=== PATIENT | male | born 1965 | race Hispanic/Latino ===

== ENCOUNTER 2020-06-05 05:53 | Day surgery (SDC) | payer OTHER ==
[~2020-06-05] VITALS: Ht 157.5 cm; Wt 96.2 kg
[2020-06-05] MEDS ORDERED: SODIUM CHLORIDE 0.9% 1000ML 1,000 ML IV ONE (06:24)
[2020-06-05 06:55] VITALS: BP 120/63
[2020-06-05] MEDS ORDERED: PROPOFOL 10 MG/ML 20ML VIAL IV ONE ×4 (08:26→09:13)
[2020-06-05] MEDS ORDERED: LIDOCAINE HCL 1% 20 ML VIAL ONE (08:26)
[2020-06-05 09:35] VITALS: BP 114/50
[2020-06-05 09:53] VITALS: BP 122/72
== END 2020-06-05 09:55 | disposition home or self-care (01) ==
LOC: ENDO 05:53 → DAH 05:53 → ENDO 09:55
PROVIDERS: ATTEND Internal Medicine Gastroenterology
DX: D49.0 Neoplasm of unspecified behavior of digestive system (principal); Z20.828 Contact with and (suspected) exposure to other viral communicable diseases; I10 Essential (primary) hypertension; E78.5 Hyperlipidemia, unspecified; K21.9 Gastro-esophageal reflux disease without esophagitis; E66.9 Obesity, unspecified; Z79.899 Other long term (current) drug therapy; Z98.890 Other specified postprocedural states; Z79.82 Long term (current) use of aspirin; Z68.38 Body mass index [BMI] 38.0-38.9, adult
CPT/HCPCS: 36415; 43242; 82150; 82378; A4215 ×3; A4221; A4222; A4223; A4606; A4620; A4657; A4663; C9803; J2704 ×4; J7030; U0003